=== PATIENT | female | born 1955 | race Asian ===

== ENCOUNTER 2019-07-03 05:54 | Inpatient (IN) | payer OTHER ==
[~2019-07-03] VITALS: Ht 162.6 cm; Wt 53.1 kg
--- NOTE | 2019-07-03 06:07 | NUR ---
PATIENT WAS BROUGHT IN BY EMS WITH COMPLAINT OF ABDOMINAL PAIN, N/V/D. PATIENT REFUSE ZOFRAN IN HTE FIELD. WAITING FOR MD EVALUATION.
--- NOTE | 2019-07-03 06:53 | NUR ---
PATIENT WAS SEEN BY MD. SALINE LOCK INSERTED.FLUID IS INFUSING. PATIENT MEDICATED WITH ZODRAN, AND TORADOL.
[2019-07-03 07:08] LABS: BASOPHIL % 0.2 % (0-2); PLATELET COUNT 204 x10^3mcL (130-400)
--- NOTE | 2019-07-03 07:15 | NUR ---
RECEIVED PATIENT IN ROOM 9, NIMISHA AT BEDSIDE WHO STATES PATIENT WITH ABD PAIN, N/V/D SINCE THIS AM. PATIENT IS AAO X 4 (NAME, DATE, TIME AND CONDITION). EYES - LISSETTE. MUCUS - PINK. SR ON MONITOR, HR = 64. LUNGS - CTA. BS PRESENT X 4 QUADRANTS. B/L UPPER AND LOWER EXT PULSES PALPABLE. IVF INFUSING ON LEFT AC AT 250 ML/HR. WILL CONTINUE TO MONITOR//APR RN
[2019-07-03 07:18] LABS: CALCIUM 8.3 mg/dL (8.5-10.1); CARBON DIOXIDE 24.2 mmol/L (21-32); CHLORIDE SERUM 104 mmol/L (98-107); CREATININE SERUM 0.7 mg/dL (0.6-1.0); GFR1 > 60 mL/min; GLUCOSE SERUM 117 mg/dL (74-106); POTASSIUM SERUM 4.1 mmol/L (3.5-5.1); SODIUM SERUM 140 mmol/L (136-145)
[2019-07-03 07:22] LABS: ALKALINE PHOSPHATASE 62 U/L (46-116); ALT/SGPT 25 U/L (14-59); AMYLASE 53 U/L (25-115); AST/SGOT 16 U/L (15-37); BILIRUBIN TOTAL 0.7 mg/dL (0.20-1.00); LIPASE 163 IU/L (73-393); TOTAL PROTEIN, SERUM 6.9 g/dL (6.4-8.2)
[2019-07-03 07:24] LABS: ALBUMIN 3.3 g/dL (3.4-5.0)
--- NOTE | 2019-07-03 07:40 | NUR ---
PATIENT AMBULATED TO RESTROOM WITHOUT ASSIST, WITH STEADY GAIT.//APR RN
--- NOTE | 2019-07-03 07:50 | NUR ---
PATIENT C/O ABD PAIN 7/10 [address] AMB[address] RESTROOM[address] SHRESTHA AT BEDSIDE, STATES OK TO GIVE FENTANYL AT THIS TIME. MED ORDER CARRIED OUT.//JAN RN
--- NOTE | 2019-07-03 08:10 | NUR ---
PATIENT OUT OF UNIT AT THIS TIME FOR CT SCAN.//APR RN
--- NOTE | 2019-07-03 08:31 | NUR ---
PATIENT RETURNED FROM CT SCAN AT THIS TIME. DENIES PAIN AT THIS TIME, STATES "IT'S OK." //APR RN
--- NOTE | 2019-07-03 09:27 | NUR ---
CALLED NIMISHA ADVISED THAT PATIENT WILL BE ADMITTED TO THE HOSP. VERBALIZED UNDERSTANDING, NO QUESTIONS AT THIS TIME//APR RN
--- NOTE | 2019-07-03 10:02 | NUR ---
PATIENT AMBULATED TO RESTROOM WITHOUT ASSIST, WITH STEADY GAIT../APR RN
--- NOTE | 2019-07-03 11:14 | NUR ---
REPORT CALLED TO NII MORALES FOR ROOM 240B. ADVISED OF RECTAL BLEED AND + GUAIAC TEST. PATIENT AND SON MADE AWARE OF TRANSFER/ADMISSION TO ROOM 240B.//APR RN
[2019-07-03 11:32] LABS: FREE T4 1.14 ng/dL (0.76-1.46); FREE THYROXINE INDEX 3.3 ug/dL (1.4-4.5); T4(THYROXINE) 9.3 ug/dL (4.7-13.3)
--- NOTE | 2019-07-03 12:00 | NUR ---
RECEIVED PATIENT FROM ER AT THIS TIME. PATIENT ABLE TO AMBULATE FROM RNEY TO BED. PATIENT A/O X4 AND ABLE TO MAKE NEEDS KNOWN. SON AT BEDSIDE. PATIENT ABLE TO FOLLOW COMMANDS. BREATHING EVEN AND UNLABORED. NO RESPIRATORY DISTRESS NOTED. PULSES PALPABLE AND NO EDEMA NOTED. PATIENT DENIES CHEST PAIN/PRESSURE AT THIS TIME. PATIENT C/O ABD PAIN AND BLOODY DIARRHEA (DOCTOR AWARE). PATIENT DENIES NAUSEA AND VOMITING AT THIS TIME. PATIENT VOIDS FREELY WITH NO C/O BURNING/DISCOMFORT. GENERALIZED WEAKNESS NOTED, BUT PATIENT IS AMBULATORY. SKIN CLEAN AND INTACT. IV PATENT TO RIGHT AC @70ML/HR. PATIENT CALM AND COOPERTIVE WITH NURSING CARE. ALL QUESTIONS AND CONCERNS ADDRESSED. ALL NEEDS ATTENDED TO. WILL CONTINUE TO MONITOR
[2019-07-03 12:03] LABS: T3 TOTAL 1.04 ng/mL
[2019-07-03 12:37] LABS: MAGNESIUM 1.7 mg/dL (1.8-2.4); PHOSPHOROUS 3.5 mg/dL (2.5-4.9)
[2019-07-03 12:38] VITALS: BP 125/69
--- NOTE | 2019-07-03 15:30 | NUR ---
PATIENT HAD BOWEL MOVEMENT AT THIS TIME. STOOL SAMPLE SENT DOWN TO LAB.
--- NOTE | 2019-07-03 16:15 | NUR ---
PATIENT C/O ABD PAIN AT THIS TIME. PATIENT MEDICATED WITH NORCO PO PRN AT THIS TIME. PATIENT TOLERATED MEDICATION WELL. NO APPARENT ADVERSE EFFECTS NOTED. ALL NEEDS ATTENDED TO. WILL CONTINUE TO MONITOR
[2019-07-03 16:58] VITALS: BP 102/56
--- NOTE | 2019-07-03 18:46 | NUR ---
PATIENT RESTING COMFORTABLY IN BED AT THIS TIME. NO APPARENT DISTRESS OR DISCOMFORT NOTED. IV PATENT AND INTACT INFUSING NS AT 70ML/HR. DAUGHTER AT BEDSIDE. ALL QUESTIONS AND CONCERNS ADDRESSED. ALL NEEDS ATTENDED TO. SAFETY PRECAUTIONS MAINTAINED. WILL ENDORSE ALL CARE TO DRUM STRAIGHTENER NURSE
--- NOTE | 2019-07-03 19:30 | NUR ---
RECIEVED PATIENT AT START OF SHIFT A/O X4. PATIENT STATES SHE HAS ABDOMINAL PAIN BUT IT FEELS TOLERABLE. SHE REPORTS SHE FEELS WEAK AND TIRED. PATIENT HAS BEEN HAVING BRIGHT RED BLOODY DIARRHEA EVERY 30 MINS. BOWEL SOUNDS ARE ACTIVE, ABDOMEN IS SOFT AND ROUND. PULSES ARE MODERATE. DR. GRANT WAS UPDATED OF PATIENTS FREQUENT BLOODY BMS. STAT H/H ORDERED. IV TO LAC IS INFUSING NS WITHOUT ERYTHEMA OR INFILTRATION. BED LOCKED AND IN LOWEST POSITION. CALL LIGHT AND BEDSIDE TABLE WITHIN REACH.
--- NOTE | 2019-07-03 20:29 | NUR ---
PATIENT IS HAVING NAUSEA. MEDICATED WITH ZOFRAN PER EMAR AT THIS TIME.
--- NOTE | 2019-07-03 20:38 | NUR ---
PATIENT GIVEN MORPHINE PER EMAR FOR 8/10 ABDOMINAL PAIN. BLOOD PRESSURE TAKEN BEFORE ADMIN, ALL VITALS WNL.
[2019-07-03 20:42] VITALS: BP 126/61
--- NOTE | 2019-07-03 20:51 | NUR ---
PATIENT GIVEN KPAD FOR HER ABDOMINAL PAIN.
--- NOTE | 2019-07-03 21:30 | NUR ---
PATIENTS HEMOGLOBIN HAS ONLY DECREASED FROM 12.9 TO 12.7 DESPITE FREQUENT BLOODY STOOLS.
--- NOTE | 2019-07-03 23:43 | NUR ---
PATIENT IS REORTING 9/10 PAIN TO ABDOMEN. BP WAS 92/62, THEREFORE MORPHINE COULD NOT BE ADMINISTERED. NORCO GIVEN INSTEAD PER EMAR.
--- NOTE | 2019-07-03 23:57 | NUR ---
PATIENT IS CRYING IN 10/10 PAIN. NEW BLOOD PRESSURE TAKEN AT THIS TIME INCREASED TO 125/51. THEREFORE MORPHINE WAS ADMINISTERED PER EMAR.
--- NOTE | 2019-07-04 02:32 | NUR ---
PATIENT GIVEN MORPHINE PER EMAR FOR REPORT OF SEVERE ABDOMINAL PAIN.
[2019-07-04 04:50] LABS: UA SPECIFIC GRAVITY >=1.030 (1.005-1.035); microscopic required? YES; urine erythrocyte 3+ (NEGATIVE)
[2019-07-04 04:54] VITALS: BP 107/56
[2019-07-04 05:10] LABS: AMPHETAMINE QUAL UR NONE DETECTED (See below)
--- NOTE | 2019-07-04 05:34 | NUR ---
PATIENT GIVEN MORPHINE PER EMAR FOR 8/10 ABDOMINAL PAIN.
--- NOTE | 2019-07-04 06:47 | NUR ---
PATIENT HAD A TOTAL OF 5 BLOODY LOOSE BMS THIS SHIFT. NO FURTHER SIGNIFICANT EVENTS. BED LOCKED AND IN LOWEST POSITION. CALL LIGHT AND BEDSIDE TABLE WITHIN REACH. IV INFUSING WITHOUT ERYTHEMA OR INFILTRATION. WILL ENDORSE CARE TO DAYSHIFT NURSE.
[2019-07-04 07:01] LABS: BASOPHIL % 0.2 % (0-2); PLATELET COUNT 226 x10^3mcL (130-400); RED CELL DISTRIBUTION WIDTH 12.7 % (11.5-14.5)
--- NOTE | 2019-07-04 07:12 | NUR ---
PT IN BED, AXOX4. VERBAL, ABLE TO MAKE NEEDS KNOWN, CALM AND COOPERATIVE, LISSETTE, NO FACIAL DROOP/SLUURED SPEECH, RESP EVEN, NO SOB/COUGH AT THIS TIME, CHEST RISE SYMMETRICALLY, DENIED CP/KING/PALPITATION, DENIED N/V/DIZZINES, MEDSURG, ABD FLAT AND NON-TENDER TO TOUCH, BS ACTIVE X 4, REPORTED PAIN 6/10, DULL, REPORTED DIARRHEA THIS AM, SEMI-LIQUID, PALP PULSES, CAP REFILL <3S, CONTINENT, AMBULATORY W/ ASSIST, IV PATENT AND INFUSING WELL, DRESSING CDI, SKIN D/W/C, SEE SKIN ASSESSMENT, DAUGHTETR AT BEDSIDE, ALL NEEDS ADDRESSED AT THIS TIME, SAFETY PROTOCOL FOLLOWED, CONTINUE TO MONITOR
[2019-07-04 07:13] LABS: CALCIUM 7.7 mg/dL (8.5-10.1); CARBON DIOXIDE 24.1 mmol/L (21-32); CHLORIDE SERUM 110 mmol/L (98-107); CREATININE SERUM 0.6 mg/dL (0.6-1.0); GFR1 > 60 mL/min; GLUCOSE SERUM 120 mg/dL (74-106); MAGNESIUM 1.8 mg/dL (1.8-2.4); PHOSPHOROUS 3.4 mg/dL (2.5-4.9); POTASSIUM SERUM 3.8 mmol/L (3.5-5.1); SODIUM SERUM 143 mmol/L (136-145)
--- NOTE | 2019-07-04 08:26 | NUR ---
DR FELICIANO PAGED R/T PT PAIN FREQUENCY AND REQUEST FOR MORE PAIN CONTROL MED, NEW ORDER GIVEN, MEDICATED PT PER EMAR PRN, TOLERATED WELL, EDUCATED PT AND FAMLY R/T PAIN MED AND ASE, VERBALLY UNDERSTANDING, NO FURTHER CONCENS NEEDED WHEN ASKED, CONTINUE TO MONITOR
[2019-07-04 08:53] VITALS: BP 112/58
--- NOTE | 2019-07-04 09:18 | NUR ---
RECEIVED REPORT FROM CLYDE RN, PT IN BED W/ NO ACUTE RESP DISTRESS, MOANING FOR ABD PAIN, 03/30
--- NOTE | 2019-07-04 09:49 | NUR ---
AM MED GIVEN PER EMAR, TOLERATD WELL, NO ASE NTOED AT THIS TIME, EDUCATION R/T MED AND ASE GIVEN , VERBALLY UNDERSTANDING, CONTINUE TO MONITOR
--- NOTE | 2019-07-04 10:01 | NUR ---
SEEN BY DR NEGRON GI SPECIALIST, QUESTIONS ASKED AND ANSWERED, NO FURTHER CONCERN NEEDED WHEN ASKED, FAMILY AT BEDSIDE TRANSLATE FOR PT AND DR NEGRON, COLONOSCOPY FOR POSSIBLE TOMORROW OR SATURDAY
--- NOTE | 2019-07-04 11:57 | NUR ---
PT SLEEPING IN BED, FAMILY AT BEDSIDE, IN NO APPARENT PAIN/DISTRESS
--- NOTE | 2019-07-04 12:52 | NUR ---
BM X 1, SMALL, BLOODY STAIN COLOR, SEMI CONSISTANCY, ASSISTED BACK TO BED, IN NO ACUTE DISTRESS
[2019-07-04 17:12] VITALS: BP 90/50
--- NOTE | 2019-07-04 17:24 | NUR ---
PT RESTING IN BED, VERBAL, OCCITAN LANGUAGE, FAMILY AT BEDSIDE, ABLE TO MAKE NEEDS KNOWN, RESP EVEN, NO SOB/COUGH, DENIED CP/KING/PALPITATION, DENIED N/V/D, DENIED ABD PAIN AT THIS TIME, AMBULATORY, CONTINENT, IV PATENT AND INFUSING WELL, ALL NEEDS ADDRESSED AT THIS TIME, SAFETY PROTOCOL FOLLOWED, WILL ENDORSE TO ONCOMING RNPT IN BED,
--- NOTE | 2019-07-04 19:28 | NUR ---
AWAKEAND VERBALLY RESPONSIVE, ABLE TO MAKE NEEDS KNOWN, KPREAN SPEAKING , AT BEDSIDE AN INTERPETER, SKIN WARM AND DRY TO TOUCH. RESPIRATION EVEN AND UNLABORED. STILLL WITH INTERMITTENT ABDOMINAL PAIN, WITH PAIN LEVEL 2/10 AT THIS TIME, BRENDA , WAS GIVEN TORADOL IVP AT 1517 BY AM RN. PLACED CALL LIGHT WITHIN REACH.
--- NOTE | 2019-07-05 00:01 | NUR ---
EYES CLOSED, NO FACIAL GRIMACING NOTED. RESPIRATION EVEN AND UNLABORED. NO S/S OF PAIN/DISCOMOFRT. CALL LIGHT WITHIN REACH. BED LOKCED AND IN LOWEST POSITION FOR SAFETY.
--- NOTE | 2019-07-05 05:00 | NUR ---
C/O SEVERE ABDOMINAL PAIN ON SCALE 8/10, TORADOL 30MG IVP PRN MEDICATION. ASSISTED IN REPOSITIONING FOR COMFORT. ORAL FLUIDS TOLERATED WELL. CONTINUES ON ATB IVPB WITHOUT ADVERSE REACTION NOTED.
[2019-07-05 06:09] VITALS: BP 104/60
[2019-07-05 06:30] LABS: CALCIUM 6.8 mg/dL (8.5-10.1); CARBON DIOXIDE 27.3 mmol/L (21-32); CHLORIDE SERUM 108 mmol/L (98-107); CREATININE SERUM 0.5 mg/dL (0.6-1.0); GFR1 > 60 mL/min; GLUCOSE SERUM 124 mg/dL (74-106); MAGNESIUM 1.7 mg/dL (1.8-2.4); PHOSPHOROUS 1.5 mg/dL (2.5-4.9); POTASSIUM SERUM 3.2 mmol/L (3.5-5.1); SODIUM SERUM 143 mmol/L (136-145)
--- NOTE | 2019-07-05 06:36 | NUR ---
PT RESTING IN BED WITH EYES CLOSED, APPARENTLY NO S/S OF PAIN/DISCOMFORT AT THIS TIME, PAIN LEVEL 0/10. CALL LIGHT WITHIN EASY REACH.
[2019-07-05 06:40] LABS: BASOPHIL % 0.2 % (0-2); PLATELET COUNT 131 x10^3mcL (130-400); RED CELL DISTRIBUTION WIDTH 13.2 % (11.5-14.5)
--- NOTE | 2019-07-05 07:10 | NUR ---
RECEIVED REPORT FROM DIMAS BALES, PT SLEEPING IN BED, IN NO APPARENT ACUTE DISTRESS
[2019-07-05 07:19] VITALS: BP 118/68
[2019-07-05 08:51] VITALS: BP 103/53
--- NOTE | 2019-07-05 08:59 | NUR ---
AM MED GIVEN PER EMAR, TOLERATD WELL, NO ASE NTOED AT THIS TIME, EDUCATION R/T MED AND ASE GIVEN , VERBALLY UNDERSTANDING, CONTINUE TO MONITOR
--- NOTE | 2019-07-05 09:09 | NUR ---
IV DRESSING NOTED BLOOD STAINED, DRESSING CHANGED, CDI, IV INFUSING WELL, NO INFILTRATION NOTED, PT RESTING IN BED, IN NO ACUTE DISTRESS
--- NOTE | 2019-07-05 09:50 | NUR ---
PT REPROTED ABD CRAMP AND PAIN, 6/, MEDICATED PER PRN EMAR, TOLERATED WELL, EDUCATED R/T ASE AND EFFECTIVENESS MONITOR, VERBALLY UNDERSTANDING, FAMILY AT BEDSIDE, COTNINUE TO MONITOR
--- NOTE | 2019-07-05 12:36 | NUR ---
PT SLEEPING IN BED, IN NO APPRARENT DISTRESS, FAMILY AT BEDSIDE, IV INFUSING WELL
--- NOTE | 2019-07-05 14:10 | NUR ---
PT SEEN BY DR NEGRON, MADE AWARE OF COLONOSCOPY TOMORROW MORNING, QUESTIONS ASKED AND ANSWERED BY DR NEGRON, VERBALLY UNDERSTANDING, NO FURTHER CONCERNS NEEDED WHEN ASKED, NEW ORDER OBTAINED FROM DR NEGRON, PT AND FAMILY MADE AWARE, CONTINUE TO MONITOR
--- NOTE | 2019-07-05 15:48 | NUR ---
VOID X 1, BM X 1, SMALL, DARK YELLOW, SEMI CONSISTENCY, REPORTED NO ABD PAIN AT THIS TIME
--- NOTE | 2019-07-05 16:01 | NUR ---
BOWEL PREP MED AND EDUCATION GIVEN TO PT AND FAMIMY MEMBERS AT BEDSIDE, VERBALLY UNDERSTANDING, CONTINUE TO MONITOR
[2019-07-05 16:35] VITALS: BP 118/58
--- NOTE | 2019-07-05 17:45 | NUR ---
PT RESTING IN BED, VERBAL, [place] LANGUAGE, FAMILY AT BEDSIDE, ABLE TO MAKE NEEDS KNOWN, RESP EVEN, NO SOB/COUGH, DENIED CP/KING/PALPITATION, DENIED N/V/D, DENIED ABD PAIN AT THIS TIME, AMBULATORY, CONTINENT, IV PATENT AND INFUSING WELL, BOWEL PREP ON GOING, PT TOLERATED WELL, ALL NEEDS ADDRESSED AT THIS TIME, SAFETY PROTOCOL FOLLOWED, WILL ENDORSE TO ONCOMING RN
--- NOTE | 2019-07-05 19:15 | NUR ---
RECEIVED UP IN THE CHAIR, VERBALLY RESPONISVE. SKIN WARM AND DRY TO TOUCH. RESPIRATION EVEN AND UNLABORED/ PT CLAIMED WITH ABDOMINAL PAIN ON SCALE 2/10, BEARBLE AT THIS TIME. AT BEDSIDE VERY SUPPORTIVE OF PATIENT'S CURRENT PLAN OF CARE.ED CALL LIGHT WITHIN REACH.
--- NOTE | 2019-07-05 20:30 | NUR ---
C.O ABDOMINAL PAIN ON SCLE 03/30, MORPHINE 1MG IVP PRN MEDICTION. CONTINUES ON ATB IVPB OPRDERED. WILL CONTINUE TO MONITOR,
[2019-07-05 20:46] VITALS: BP 105/50
--- NOTE | 2019-07-05 21:00 | NUR ---
PAIN LEVEL 0/10, RESTING QUIETLY IN BED. CALL LIGHT WITHIN REACH.
--- NOTE | 2019-07-06 00:01 | NUR ---
MAINTAINED ON NPO FOR COLONOSCOPY IN AM,. CONTINUES ON ATB IVPB WITHOUT ADVERSE REACTION NOTED. BED LOCKED AND IN LOWEST POSITION.
[2019-07-06 04:31] VITALS: BP 107/57
--- NOTE | 2019-07-06 06:18 | NUR ---
MAINTAINED ON NPO AFTER MIDNIGHT FOR COLONOSCOPY TODAY. IVF D5NS INFUSING AT 80ML/HR VIA PERIPHERAL LINE AT THE LAC TOLERATING WELL. KEPT CLEAN AND DRY. ALL NEEDS ATTENDED.
--- NOTE | 2019-07-06 07:30 | NUR ---
RECEIVED PT IN BED A/A/OX4 DENIES KING. RESP EVEN AND UNLABORED WITH CLEAR BS BILAT. DENIES ANY SOB/CP/PRESSURE AT THIS TIME. ABD SOFT, TENDER TO TOUCH WITH ACTIVE BS X4. WITH ACTIVE WATERY DIARRHEA FROM D/T BOWEL PREP. WITH SCHEDULED COLONOSCOPY THIS AM. PT REPORTS MILD CRAMPING DENIES NEED FOR PAIN MEDS AT THIS TIME. CALL LIGHT IN REACH NEEDS ATTENDED TO.
[2019-07-06 07:40] VITALS: BP 114/64
--- NOTE | 2019-07-06 08:17 | NUR ---
PT PICKED UP BY GI LAB NURSES TO BE TAKEN FOR COLONOSCOPY. PT LEFT FLOOR FREE OF ANY APPARENT DISTRESS. ACCOMPANIED BY .
--- NOTE | 2019-07-06 10:44 | NUR ---
PT BACK FROM GI LAB S/P COLONOSCOPY, PT IS A/A/OX4 DENIES ANY DISCOMFORT AT THIS TIME. ON RA. AT BEDSIDE. PT DENIES ANY N/V AT THIS TIME. CALL LIGHT IN REACH NEEDS ATTENDED TO.
[2019-07-06 10:46] VITALS: BP 111/61
--- NOTE | 2019-07-06 11:00 | NUR ---
ATTEMPTED TO GIVE AM MEDS THAT HAD BEEN HELD D/T PT GOINGN DOWN FOR COLONOSCOPY AND NOTICED THAT DR. NEGRON HAD D/C'D MAGOXIDE AND NEUTRAPHOS ORDERS. GAVE REMAINING MEDS THAT MD HAD NOT D/C'D OR CHANGED.
--- NOTE | 2019-07-06 14:10 | NUR ---
PT TOLERATED CL DIET WELL. DENIES ANY N/V AT THIS TIME.
[2019-07-06 16:29] VITALS: BP 130/74
--- NOTE | 2019-07-06 16:52 | NUR ---
PT RESTING AT THIS TIME, WITH FAMILY AT BEDSIDE. CALL LIGHT IN REACH NEEDS ATTENDED TO.
--- NOTE | 2019-07-06 17:56 | NUR ---
PT C/O MILD ABD PAIN, CRAMPING AND FREQUENCY OF STOOL. MEDICATED WITH LEVSIN PER EMAR. CALL LIGHT IN REACH. FAMILY REMAINS AT BEDSIDE.
--- NOTE | 2019-07-06 18:18 | NUR ---
PT RESTING COMFORTABLY AT THIS TIME. WITH FAMILY AT BEDSIDE. CALL LIGHT IN REACH. NEEDS ATTENDED TO.
--- NOTE | 2019-07-06 19:00 | NUR ---
CARE ASSUMED FROM OUTGOING RN. PT RESTING COMFORTABLY IN BED. FAMILY AT BEDSIDE. NO ACUTE DISTRESS NOTED. EVEN AND UNLABORED RESPIRATIONS ON RA. MEDSURG PT. IV PATENT AND INTACT. K PAD APPLIED TO ABD AREA. C/O ABD DISCOMFORT, MEDICATED PER EMAR BY DAY SHIFT RN. ALL CONCERNS ADDRESSED BY DAY SHIFT RN. BED IN LOWEST POSITION. SIDE RAILS UPX2. CALL LIGHT WITHIN REACH. WILL CONTINUE TO MONITOR.
[2019-07-06 20:28] VITALS: BP 158/80
--- NOTE | 2019-07-07 00:41 | NUR ---
PT SLEEPING COMFORTABLY IN BED. NO ACUTE DISTRESS NOTED. FAMILY AT BEDSIDE. EVEN AND UNLABORED RESPIRATIONS ON RA. BED IN LOWEST POSITION. SIDE RAILS UPX2. CALL LIGHT WITHIN REACH. WILL CONTINUE TO MONITOR.
[2019-07-07 05:30] VITALS: BP 118/70
--- NOTE | 2019-07-07 06:28 | NUR ---
PT RESTED IN INTERVALS THROUGHOUT THE SHIFT, STATES ONLY ABLE TO SLEEP FOR 2HOURS. FAMILY AT BEDSIDE. ALL NEEDS TENDED TO AND MET. ALL SCHEDULED MEDICATIONS GIVEN. C/O ABD PAIN/DISCOMFORT TENDED TO WITH K PAD, STATES PAIN MEDICATIONS NOT NEEDED AT THIS TIME. IV PATENT AND INTACT. BED IN LOWEST POSITION. SIDE RAILS UPX2. CALL LIGHT WTIHIN REACH. WILL ENDORSE TO ONCOMING SHIFT.
[2019-07-07 07:30] LABS: BASOPHIL % 0.1 % (0-2); PLATELET COUNT 166 x10^3mcL (130-400); RED CELL DISTRIBUTION WIDTH 13.1 % (11.5-14.5)
--- NOTE | 2019-07-07 07:30 | NUR ---
RECEIVED PT IN BED A/A/OX4 DENIES KING. RESP EVEN AND UNLABORED WITH CLEAR BS BILAT. DENIES ANY SOB/CP/PRESSURE AT THIS TIME. NO EDEMA NOTED. ABD SOFT, TENDER TO TOUCH WITH ACTIVE BS X4. DENIES ANY N/V AT THIS TIME. WITH DIARRHEA EPISODES AFTER BOWEL PREP COMPLETED YESTERDAY. C/O MILD ABD CRAMPING. DENIES NEED FOR PAIN MEDS. FAIR APPETITE REPORTED BY . VOIDING FREELY AND AMBULATING WITH ASSIST. CALL LIGHT IN REACH NEEDS ATTENDED TO.
[2019-07-07 07:41] LABS: CALCIUM 7.4 mg/dL (8.5-10.1); CHLORIDE SERUM 108 mmol/L (98-107); CREATININE SERUM 0.5 mg/dL (0.6-1.0); GFR1 > 60 mL/min; GLUCOSE SERUM 118 mg/dL (74-106); MAGNESIUM 1.8 mg/dL (1.8-2.4); PHOSPHOROUS 3.6 mg/dL (2.5-4.9); POTASSIUM SERUM 3.8 mmol/L (3.5-5.1); SODIUM SERUM 143 mmol/L (136-145)
[2019-07-07 08:43] VITALS: BP 108/67
--- NOTE | 2019-07-07 11:30 | NUR ---
PT RESTING AT THIS TIME. DENIES ANY DISCOMFORT. FAMILY AT BEDSIDE. CALL LIGTH IN REACH NEEDS ATTENDED TO.
[2019-07-07 12:45] VITALS: BP 131/65
--- NOTE | 2019-07-07 13:50 | NUR ---
PHARMACY HAD BEEN CALL X2 AND SPOKE WITH ENAMEL BURNER REGARDING MED ASACOL NOT BEING AVAILABLE IN [place], STATED THAT MED WILL BE REFILLED, MEDICATION WILL BE GIVEN LATE OR HELD UNTIL NEXT DOSE IF NOT AVAILABLE SOON.
[2019-07-07 17:37] VITALS: BP 113/65
--- NOTE | 2019-07-07 17:48 | NUR ---
PT RESTING COMFORTABLY AT THIS TIME. EATING DINNER WITH AT BEDSIDE. REPORTS IMPROVEMENT WITH ABD CRAMPING TODAY. NO NEED FOR PAIN MEDS. CALL LIGHT IN REACH NEEDS ATTENDED TO.
--- NOTE | 2019-07-07 18:43 | NUR ---
PT TOLERATING REG DIET. DENIES ANY DISCOMFORT. FAMILY REMAINS AT BEDSIDE.
--- NOTE | 2019-07-07 20:00 | NUR ---
RECEIVED PT IN BED, A/O X4. DENIES HEADACHE/DIZZINESS. RESP. EVEN AND UNLABORED. ON ROOM AIR, NO ACUTE DISTRESS NOTED. AFEBRILE AND VITAL SIGNS STABLE. DENIES CHEST PAIN OR ANY DISCOMFORT AT THIS TIME. HL TO LAC, INTACT AND PATENT. ABD. SOFT, NON DISTENDED, BS ACTIVE, NO N/V NOTED. NO BM NOTED AT THIS TIME. NO ACTIVE BLEEDING NOTED. FAMILY AT THE BEDSIDE. CALL LIGHT WITHIN REACH. WILL CONTINUE TO MONITOR.
[2019-07-07 20:07] VITALS: BP 105/58
--- NOTE | 2019-07-07 23:37 | NUR ---
REQUESTED SLEEPING MED, MEDICATED WITH AMBIEN PO ORDERED. RESTING QUIETLY IN BED AT THIS TIME. CALL LIGHT WITHIN REACH. WILL CONTINUE TO MONITOR.
--- NOTE | 2019-07-08 02:32 | NUR ---
RESTING QUIETLY WITH EYES CLOSED, APPEARS ASLEEP, EASILY AROUSABLE. RESP. EVEN AND UNLABORED. RESP. EVEN AND UNLABORED. ON ROOM AIR, NO ACUTE DISTRESS NOTED. CALL LIGHT WITHIN REACH. SPOUSE AT THE BEDSIDE. WILL CONTINUE TO MONITOR.
[2019-07-08 05:12] VITALS: BP 119/69
--- NOTE | 2019-07-08 06:20 | NUR ---
SLEPT WELL. NO COMPLAINTS NOTED AT THIS TIME. AFEBRILE AND VITAL SIGNS STABLE. RESP. EVEN AND UNLABORED. ON ROOM AIR, NO ACUTE DISTRESS NOTED. NO BLOODY BM NOTED. NO N/V NOTED. HL INTACT AND PATENT. VOIDING FREELY. DENIES PAIN OR ANY DISCOMFORT AT THIS TIME. KEPT COMFORTABLE. CALL LIGHT WITHIN REACH. WILL CONTINUE TO MONITOR.
[2019-07-08 07:09] LABS: CALCIUM 7.2 mg/dL (8.5-10.1); CHLORIDE SERUM 109 mmol/L (98-107); CREATININE SERUM 0.5 mg/dL (0.6-1.0); GFR1 > 60 mL/min; GLUCOSE SERUM 120 mg/dL (74-106); SODIUM SERUM 143 mmol/L (136-145)
[2019-07-08 07:24] LABS: BASOPHIL % 0.2 % (0-2); PLATELET COUNT 194 x10^3mcL (130-400); RED CELL DISTRIBUTION WIDTH 12.7 % (11.5-14.5)
--- NOTE | 2019-07-08 08:31 | NUR ---
At 0720, Recieved patient from night warehouse manager nurse. She is awake, alert, and oriented. No complaints of pain at that time. is at the bedside. IV is saline locked. At 0805, patient is sitting up, eating breakfast and is complaining of aching pain in the abdomen after eating. Reports two small bowel movements yesterday.
[2019-07-08 09:04] VITALS: BP 112/66
[2019-07-08] MEDS ORDERED: PREDNISONE50 MG PO (11:06)
[2019-07-08] MEDS ORDERED: PREDNISONE20 MG PO (11:06)
[2019-07-08] MEDS ORDERED: LIALDA1.2 GM PO (11:07)
--- NOTE | 2019-07-08 12:15 | NUR ---
RECEIVED DISCHARGE ORDERS. IV CATHETER REMOVED INTACT.
[2019-07-08 12:16] VITALS: BP 112/66
--- NOTE | 2019-07-08 12:33 | NUR ---
PATIENT OBSERVED EATING LUNCH. IV SITE DISCONTINUED. PATIENT WILL BE GOING HOME AFTER LUNCH.
--- NOTE | 2019-07-08 14:04 | NUR ---
AT 1350 - PRINTED DISCHARGE INSTRUCTIONS GIVEN AND EXPLAINED TO PATIENT AND USING [place] LANGUAGE TELPHONE TESTER COMPRESSED GASES ID # [id number]. PRESCRIPTION PROVIDED. AT 1400 - DISCHARGED HOME WITH . ESCORTED AMBUALTORY TO DISCHARGE OFFICE BY NURSE.
== END 2019-07-08 14:00 | disposition home or self-care (01) | DRG 386 ==
LOC: ED 05:54 → MU 10:06 → DU 10:06 → MU 11:15
PROVIDERS: Internal Medicine Gastroenterology; Specialist; ADMIT Internal Medicine
PROC: 0DBL8ZX Excision of Transverse Colon, Via Natural or Artificial Opening Endoscopic, Diagnostic (ICD-10-PCS; 2019-07-06)
PROC: 0DBP8ZX Excision of Rectum, Via Natural or Artificial Opening Endoscopic, Diagnostic (ICD-10-PCS; 2019-07-06)
PROC: 0DBF8ZX Excision of Right Large Intestine, Via Natural or Artificial Opening Endoscopic, Diagnostic (ICD-10-PCS; 2019-07-06)
PROC: 0DBG8ZX Excision of Left Large Intestine, Via Natural or Artificial Opening Endoscopic, Diagnostic (ICD-10-PCS; principal; 2019-07-06 08:00)
DX: K50.10 Crohn's disease of large intestine without complications (principal); E44.1 Mild protein-calorie malnutrition; K52.9 Noninfective gastroenteritis and colitis, unspecified; E83.42 Hypomagnesemia; E78.5 Hyperlipidemia, unspecified; E87.6 Hypokalemia; E83.39 Other disorders of phosphorus metabolism
CPT/HCPCS: 45378; 83880; 84439; 87046; 87046-59; C9113; G0378; J1200; J1610; J1885; J1956; J2250; J2270; J2310; J2405; J3010; J3490; J7030; J7042; J7512; Q0092; Q9967